=== PATIENT | male | born 1940 | race Caucasian/White ===

== ENCOUNTER → 2018-09-29 13:31 | Outpatient (CLI) | payer MEDICARE, OTHER, SELFPAY ==
--- NOTE | 2018-09-29 | DI.MRI.S_ITS ---
PROCEDURE: MR KNEE RT WO CON INDICATIONS: MEDIAL MENISCAL TEAR TECHNIQUE: Noncontrast sagittal PD fast spin echo and T2 fast spin echo with fat saturation, sagittal 3-D FLASH with fat saturation; coronal T1 spin echo and PD fast spin echo with fat saturation, and axial PD fast spin echo with fat saturation through the knee. COMPARISON: [facility] Aric, DANIELITO, XR KNEE ARTHRITIC SERIES BI, 07/24/2018, 8:16. [facility], MR, KNEE WITHOUT CONTRAST, 12/28/2016, 10:00[facility]/18/2017, 10:45. FINDINGS: Image quality: Excellent. Menisci: Lateral meniscus appears intact. Undersurface tear involving the posterior horn and body of the medial meniscus, with partial extrusion Cruciate ligaments: The anterior and posterior cruciate ligaments appear intact. Medial structures: The medial collateral ligament appears intact. Mild adjacent soft tissue edema is likely reactive to meniscal pathology. The posterior oblique ligament, semimembranosus tendon insertions, oblique popliteal ligament, and meniscocapsular junction appear intact. Visualized portions of the pes anserinus tendons appear normal. No abnormal bursal fluid. Lateral structures: The lateral collateral ligament, long and short heads of the biceps femoris tendon appear intact. The popliteus tendon appears normal; the popliteofibular ligament appears intact. The posterosuperior and anteroinferior popliteomeniscal fascicles appear intact. The arcuate and fabellofibular ligaments appear intact, on either side of the lateral inferior geniculate artery. Iliotibial band appears normal. Anterior structures: Mild distal quadriceps and proximal patellar tendinopathy. There is prominent prepatellar and superficial infrapatellar subcutaneous edema. Patellar alignment is normal. No femoral trochlear dysplasia or ventral trochlear prominence. No edema in the infrapatellar fat pad. Bones and cartilage: No bone marrow contusions or fractures. Within the medial compartment, mild partial-thickness loss of the femoral and tibial articular cartilage. There is also partial-thickness loss of the posterior femoral articular cartilage on image 15 series 6. Within the lateral compartment articular cartilage appears grossly preserved. Within the patellofemoral compartment, partial-thickness loss of cartilage overlying the medial patellar facet with underlying subchondral cystic change and marrow edema. Partial-thickness loss of the central femoral trochlear cartilage, in addition to subchondral osteophyte formation image 83 series 9. Joint space: Small joint effusion. Trace fluid between the semimembranosus and medial gastrocnemius tendons without definite for abscess. No intra-articular loose bodies identified. IMPRESSION: Medial meniscal undersurface tear involving the body and posterior horn with partial extrusion. Tricompartmental joint degeneration as above. Small joint effusion. Mild distal quadriceps and proximal patellar tendinopathy. Anterior subcutaneous soft tissue edema and fluid as above. Dictated by: Behzad Kitchen M.D. on 10/01/2018 at 9:18 Approved by: Behzad Kitchen M.D. on 10/01/2018 at 9:26
== END ==
PROVIDERS: PCP Family Medicine; Visit Provider Orthopaedic Surgery
DX: S83.241A Other tear of medial meniscus, current injury, right knee, initial encounter (principal); M17.11 Unilateral primary osteoarthritis, right knee; M25.461 Effusion, right knee; R60.0 Localized edema
CPT/HCPCS: 73721

== ENCOUNTER → 2019-06-29 10:23 | Outpatient (CLI) | payer MEDICARE, OTHER, SELFPAY ==
--- NOTE | 2019-06-29 | DI.MRI.S_ITS ---
PROCEDURE: MR ANKLE RT WO CON INDICATIONS: pain in right ankle and joints TECHNIQUE: Noncontrast sagittal T1 spin echo and T2 fast spin echo with fat saturation, axial proton density fast spin echo and T2 fast spin echo with fat saturation, coronal T1 spin echo and T2 fast spin echo with fat saturation through the ankle/hindfoot. COMPARISON: None. FINDINGS: Image quality: Diagnostic. Bones and joints: No acute fracture, dislocation, or suspicious osseous lesion is identified involving the osseous structures of the midfoot or hindfoot. Ankle mortise is well-maintained. There are no osteochondral defects involving the tibial plafond toward the talar dome. Heterogeneity of the hyaline articular cartilage is evident within the middle and posterior subtalar joints without a definite full-thickness cartilaginous defect appreciated. There may be early degenerative changes of the 2nd tarsometatarsal joint. No significant joint effusions are present. There is a small plantar calcaneal spur identified with reactive marrow edema of the adjacent calcaneal tuberosity. Medial structures: The deltoid ligament and the spring ligament are intact. There is slight increased signal at the navicular attachment of the superomedial band of the spring ligament. The plantar components of the spring ligament are intact. The tibialis posterior tendon is intact. A small amount of fluid is contained within its corresponding tendon sheath. The flexor hallucis longus and flexor digitorum longus tendons are intact. Mild edema about the medial aspect of the ankle is present. The posterior tibial nerve to the region of the tarsal tunnel appears to be within normal limits. Lateral structures: The anterior and posterior distal tibiofibular ligaments are intact. The anterior and posterior talofibular ligaments are moderately irregular, probably related to previous injury. However, no definitive complete tear is appreciated. The calcaneofibular ligament is thickened and heterogeneous. Mild edema about the lateral malleolus is noted. There is thickening and increased signal involving the peroneus longus tendon along the posterior aspect of the lateral malleolus with a small amount of fluid contained within its corresponding tendon sheath. The peroneus brevis tendon also demonstrates slight increase signal along the posterior aspect of the lateral malleolus. Fluid is also contained within its corresponding tendon sheath. Mild increased signal is identified within the sinus tarsi. Anterior structures: The tibialis anterior, extensor hallucis longus, and extensor digitorum longus tendons appear intact. The dorsal talonavicular ligament appears intact. Posterior and plantar structures: Achilles tendon is intact. Mild thickening of the medial band of the plantar fascia is present, measuring up to 5 mm. There is minimal adjacent soft tissue edema. IMPRESSION: 1. Low-grade spring ligament sprain versus scarring. 2. Mild tibialis posterior tenosynovitis without significant tendinopathy. 3. Scarring of the lateral ankle ligaments. No definite complete tears. 4. Mild peroneus brevis and longus tendinopathy with corresponding mild tenosynovitis. 5. Small plantar calcaneal spur with reactive marrow edema and mild thickening of the plantar fascia. Clinical correlation for possible plantar fasciitis is recommended. 6. Increased signal within the sinus tarsi is nonspecific and may be within normal limits. However, clinical correlation to exclude sinus tarsi syndrome is recommended. 7. Subcutaneous edema about the ankle. Dictated by: Hang Perez M.D. on 06/29/2019 at 11:01 Approved by: Hang Perez M.D. on 06/29/2019 at 11:07
== END ==
PROVIDERS: PCP Family Medicine; Visit Provider Orthopaedic Surgery Foot and Ankle Surgery
DX: M25.571 Pain in right ankle and joints of right foot (principal); M65.871 Other synovitis and tenosynovitis, right ankle and foot; M77.31 Calcaneal spur, right foot; M25.471 Effusion, right ankle
CPT/HCPCS: 73721

== ENCOUNTER → 2024-05-04 09:27 | Outpatient (CLI) | payer MEDICARE, OTHER, SELFPAY ==
--- NOTE | 2024-05-04 09:30 | DI.CT.S_ITS ---
PROCEDURE: CT LUNG LOW DOSE SCREENING INDICATIONS: nicotine dependence;Disorder of kidney and ureter TECHNIQUE: Noncontrast 2.0-2.5 mm thick sections acquired from the pulmonary apices to the posterior costophrenic angles. 7 mm thick axial MIP, and 5 mm coronal and sagittal reformats were then acquired. For radiation dose reduction, the following was used: automated exposure control, adjustment of mA and/or kV according to patient size. COMPARISON: None. FINDINGS: Image quality: Diagnostic. Lower Neck: No enlarged lymph nodes. Thyroid: No thyroid nodules which require sonographic follow up, per consensus guidelines. Axillae: No enlarged lymph nodes. Chest Wall: Unremarkable. Bones: No aggressive appearing bony lesion is seen. Lungs and Pleura: There is moderate centrilobular emphysema. Scattered scarring/atelectasis in periphery of bilateral lower lung thomas are seen. Soft tissue prominence involving right minor fissure is seen measures up to 4.3 x 1.5 x 1.2 cm in size series 3, image 122 and series 4, image 27. No other suspicious pulmonary nodule or mass is seen. No pleural effusion or pneumothorax. Heart: Heart size is mildly enlarged. No pericardial effusion. Thoracic Vessels: The aorta is normal in size. Prominent size of main pulmonary artery is seen which can be seen associated with pulmonary vascular hypertension.. Three-vessel coronary artery atherosclerotic calcifications are seen. Mediastinum and Estela: No enlarged lymph nodes. Esophagus: No wall thickening. No hiatal hernia. Upper Abdomen: Subtle hypodensity in inferior right hepatic lobe is seen measures 9 mm in size series 2, image 57. No gross abnormality is seen in visualized portion spleen, pancreas, and gallbladder. Suggestion of hypodense left adrenal nodule measures 2.51.4 cm in size and -4.4 Hounsfield unit in density. Series 2, image 58. IMPRESSION: 1. Nodular thickening along medial aspect of right minor fissure and measures up to 4.3 x 1.5 x 1.2 cm in size. No other pulmonary nodule is seen. [id number] centrilobular emphysema . Bibasilar scattered atelectasis. Lung-RADS 4B: Suspicious; recommend chest CT with or without contrast, PET-CT and/or biopsy. PET-CT may be used if there is a solid component of 8 mm or more. Clinically Significant Non-pulmonary Findings: Three-vessel coronary artery atherosclerotic calcifications. Possible inferior right hepatic lobe cyst. Suggestion of left adrenal adenoma. Dictated by: Franco Mercado M.D. on 05/05/2024 at 0:15 Approved by: Franco Mercado M.D. on 05/05/2024 at 0:33
--- NOTE | 2024-05-04 09:31 | DI.CT.S_ITS ---
PROCEDURE: CT KIDNEY URETER BLADDER (KUB) INDICATIONS: nicotine dependence;Disorder of kidney and ureter TECHNIQUE: Axial sections were acquired from the lung bases to the pubic symphysis. Coronal and sagittal reformats were performed. For radiation dose reduction, the following was used: automated exposure control, adjustment of mA and/or kV according to patient size. COMPARISON: [facility], CT, CT LUNG LOW DOSE SCREENING, 05/04/2024, 9:32. FINDINGS: Image quality: Diagnostic. Lower Chest: Please refer to CT of chest findings. URINARY: Right Kidney: No stones or hydronephrosis. Exophytic simple appearing cyst in posterior cortex of midpole right kidney is seen and measures 5.1 x 4 cm in size series 2, image 41. Right Ureter: No hydroureter. Left Kidney: No stones or hydronephrosis. No gross solid appearing renal lesion. Left Ureter: No hydroureter. Bladder: Normal wall thickness. No stones. ABDOMEN: Liver: No contour-deforming solid mass. Multiple well-circumscribed hypodense areas scattered in liver parenchyma measures up to 2.5 x 2.1 cm in size in left hepatic lobe and 3.7 Hounsfield unit in density series 2, image 24 likely represent hepatic cysts. Gallbladder: No radiopaque gallstones or wall thickening. Biliary ducts: No biliary dilation. Pancreas: No ductal dilation. Spleen: Size is within normal limits. Adrenal Glands: Hypodense nodule involving left adrenal gland measures 3 x 1.9 cm in size and 1.2 Hounsfield unit in density is seen series 2, image 32 likely represent lipid rich adrenal adenoma. No right adrenal nodule is seen. Stomach and Bowel: There is a small hiatal hernia. No bowel obstruction or abnormal bowel wall thickening. Sigmoid diverticulosis is seen without CT evidence of acute diverticulitis. No abscess collection. Peritoneum: No abnormal intraperitoneal fluid. No free air. Ventral Wall: No hernia. Abdominal Nodes: No enlarged retroperitoneal or mesenteric lymph nodes. Vessels: Fusiform infrarenal abdominal aortic aneurysm is seen measures up to 6 x 5.5 cm in largest transverse and AP diameter series 2, image 50. Bilateral common iliac artery aneurysmal dilatation is also seen measures up to 1.7 cm in diameter on the right side and 1.5 cm in diameter on the left side. Moderate atherosclerotic disease throughout abdominal aorta and bilateral iliac arteries. IVC is normal in size. PELVIS: Pelvic Organs: There is prior prostatectomy.. Pelvic Nodes: Unremarkable. Miscellaneous: Moderate size left inguinal hernia is seen containing fat only. Bones: No aggressive appearing osseous lesions. Degenerative disc disease throughout thoracic and lumbar spine is seen. IMPRESSION: 1. No obstructing stones or hydronephrosis. No hydroureter. Simple appearing right renal cyst as above. No solid renal lesion. 2. Normal appearing urinary bladder. Prior prostatectomy. 3. Well-circumscribed hypodensities in liver parenchyma likely represent hepatic cysts. 4. 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 5. Fusiform infrarenal abdominal aortic aneurysm measures up to 6 x 5.5 cm in largest transverse and AP diameter. 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 Moderate atherosclerotic disease in abdominal aorta and bilateral iliac arteries. 6. Sigmoid diverticulosis without CT evidence of acute diverticulitis. No bowel obstruction or abnormal bowel wall thickening. No free fluid or free air. Small hiatal hernia. 7. Left inguinal hernia containing fat only. Dictated by: Franco Mercado M.D. on 05/05/2024 at 0:34 Approved by: Franco Mercado M.D. on 05/05/2024 at 0:50
== END ==
LOC: CT 09:29
PROVIDERS: PCP Family Medicine; Referring Provider Family Medicine; Visit Provider Family Medicine
DX: D35.02 Benign neoplasm of left adrenal gland (principal); N28.9 Disorder of kidney and ureter, unspecified; Z12.2 Encounter for screening for malignant neoplasm of respiratory organs; F17.211 Nicotine dependence, cigarettes, in remission; I71.43 Infrarenal abdominal aortic aneurysm, without rupture; I72.3 Aneurysm of iliac artery; I70.0 Atherosclerosis of aorta; I51.7 Cardiomegaly; I25.10 Atherosclerotic heart disease of native coronary artery without angina pectoris; N28.1 Cyst of kidney, acquired; K44.9 Diaphragmatic hernia without obstruction or gangrene; K57.30 Diverticulosis of large intestine without perforation or abscess without bleeding; K40.90 Unilateral inguinal hernia, without obstruction or gangrene, not specified as recurrent; M51.36 Other intervertebral disc degeneration, lumbar region; M51.34 Other intervertebral disc degeneration, thoracic region
CPT/HCPCS: 71271; 74176

== ENCOUNTER → 2024-06-22 10:34 | Outpatient (CLI) | payer MEDICARE, OTHER, SELFPAY ==
--- NOTE | 2024-06-22 10:35 | DI.CT.S_ITS ---
PROCEDURE: CT CHEST WO CON INDICATIONS: HX OF NICOTINE DEP.,DISORDER OF KIDNEY-URETER TECHNIQUE: Noncontrast 5 mm thick sections acquired from the pulmonary apices to the posterior costophrenic angles. 1 mm lung window, 5 mm thick coronal and sagittal and 7 mm axial MIP reformats were then acquired. For radiation dose reduction, the following was used: automated exposure control, adjustment of mA and/or kV according to patient size. COMPARISON: [facility], CT, CT CHEST WO CON, 05/04/2024, 9:32. FINDINGS: Image quality: Diagnostic. Lower Neck: No enlarged lymph nodes. Thyroid: No thyroid nodules which require sonographic follow up, per consensus guidelines. Axillae: No enlarged lymph nodes. Chest Wall: Unremarkable. Bones: Unremarkable. Lungs and Pleura: No pneumothorax or pleural effusions. Mild centrilobular emphysema. Redemonstration of nodular thickening along the right minor fissure measuring up to 1.0 centimeters in caliber 1 measured on sagittal series 6, image 57, previously 1.1 centimeter when measured in similar fashion on CT 05/04/2024. Stable scattered pulmonary micro nodules. No new or enlarging pulmonary nodule. Heart: Heart size is normal. No pericardial effusion. Moderate coronary artery calcifications. Thoracic Vessels: Ectatic main pulmonary artery measuring up to 3.6 centimeter in caliber. The aorta is normal in size. Mediastinum and Estela: No enlarged lymph nodes. Esophagus: No wall thickening. No hiatal hernia. Upper Abdomen: 1.7 centimeter low attenuating left adrenal nodule (Hounsfield units 16). Subcentimeter inferior right hepatic lobe hypodensity (2/61) is too small to characterize on CT, possible cyst versus hemangioma. Visualized upper abdomen solid organs and bowel loops appear normal. IMPRESSION: 1. Compared to prior CT on 05/04/2024, stable to slightly decreased size of nodular thickening along the right minor fissure measuring up to 1.0 centimeters in thickness. No other new or enlarging pulmonary nodules. Recommend follow-up CT chest in 3 months to demonstrate stability. 2. 1.7 cm low attenuating left adrenal nodule. Finding may represent an adenoma. Recommend further evaluation with CT or MR adrenal protocol. 3. Ectatic main pulmonary artery measuring up to 3.6 cm, which can be seen in the setting of pulmonary hypertension. Approved by: Brenda Ellison M.D.,Ph.D. on 06/23/2024 at 21:33
== END ==
PROVIDERS: PCP Family Medicine; Referring Provider Family Medicine; Visit Provider Family Medicine
DX: N28.9 Disorder of kidney and ureter, unspecified (principal); Z87.891 Personal history of nicotine dependence; R91.1 Solitary pulmonary nodule
CPT/HCPCS: 71250

== ENCOUNTER → 2024-07-22 08:40 | Outpatient (CLI) | payer MEDICARE, OTHER, SELFPAY | PROVIDERS: PCP Family Medicine; Referring Provider Internal Medicine Cardiovascular Disease; Visit Provider Internal Medicine Cardiovascular Disease | DX: R06.02 Shortness of breath (principal); Z87.891 Personal history of nicotine dependence; R94.2 Abnormal results of pulmonary function studies | CPT/HCPCS: 94060; 94726; 94729 ==

== ENCOUNTER → 2024-10-05 09:26 | Outpatient (CLI) | payer MEDICARE, OTHER, SELFPAY ==
--- NOTE | 2024-10-05 09:27 | DI.CT.S_ITS ---
PROCEDURE: CT CHEST WO CON INDICATIONS: follow up on lung nodule TECHNIQUE: Noncontrast 2.0-2.5 mm thick sections acquired from the pulmonary apices to the posterior costophrenic angles. 7 mm thick axial MIP and 5 mm coronal and sagittal reformats were then acquired. For radiation dose reduction, the following was used: automated exposure control, adjustment of mA and/or kV according to patient size. COMPARISON: [facility], CT, CT CHEST WO CON, 06/22/2024, 10:38. [facility], CT, CT CHEST WO CON, 05/04/2024, 9:32. FINDINGS: Image quality: Diagnostic. Lower Neck: No enlarged lymph nodes. Thyroid: No thyroid nodules which require sonographic follow up, per consensus guidelines. Axillae: No enlarged lymph nodes. Chest Wall: Unremarkable. Bones: Visualized osseous structures appear intact without acute fracture or focal destructive lesion. No acute compression fractures of the imaged spine. Lungs and Pleura: No pneumothorax or pleural effusions. No acute consolidation. No new suspicious or enlarging pulmonary nodules. Redemonstration of previously described soft tissue thickening of the right minor fissure measuring approximately 1.5 x 4.3 cm in transverse dimension (image 130/series 3) and approximately 1.0 cm in craniocaudal dimension (image 38/series 4). Findings are not significantly changed compared to May 04, 2024. There is upper lobe predominant pulmonary emphysema. Heart: Heart size is normal. No pericardial effusion. Multivessel atherosclerotic calcifications of the coronary arteries. Thoracic Vessels: The aorta is normal size. Persistent mild enlargement of main pulmonary artery measuring 3.7 cm in diameter. Mediastinum and Estela: No enlarged lymph nodes. Esophagus: No wall thickening. No hiatal hernia. Upper Abdomen: Redemonstration of hepatic hypodensities likely representing cysts or hemangiomas. Low-attenuation left adrenal nodule measuring 3 Hounsfield units. Findings are compatible with an adrenal adenoma. Other visualized upper abdomen solid organs and bowel loops appear unremarkable. IMPRESSION: No significant change in appearance of soft tissue thickening of the right minor fissure measuring approximately 4.3 x 1.5 x 1.0 cm. Stable appearance of upper lobe predominant pulmonary emphysematous changes. Stable enlargement of the main pulmonary artery which may be seen in the setting of chronic pulmonary arterial hypertension. Other chronic/nonacute findings as above. Recommend follow-up chest CT in 6 months versus PET-CT and/or biopsy. Fleischner Society criteria for SOLID lung nodule followup. Nodule size (mm)Low-risk patientHigh-risk patient<6 (single or multiple)No routine followup.Optional CT at 12 months. 6-8 (single or multiple)CT at 6-12 months, then optional CT at 18-24 mo.CT at 6-12 months, then CT at 18-24 months. >8 (single)CT at 3 months, PET-CT, or biopsy. Same as for low-risk pts. >8 (multiple)CT at 3-6 months, then optional CT at 18-24 mo.CT at 3-6 months, then CT at 18-24 months. Fleischner Society criteria for SUB-SOLID lung nodule followup. Solitary pure ground-glass nodules<6 mm (ground glass or part solid)No followup needed. 6 mm or larger (ground glass)CT at 6-12 months to confirm persistence, then CT every 2 years until 5 years.6 mm or larger (part solid)CT at 3-6 months to confirm persistence, then annual CT until 5 years if unchanged and solid component remains <6 mm. Multiple sub-solid nodules<6 mmCT at 3-6 months, then CT consider at 2 & 4 years for high risk patients. [address] at 3-6 months. Subsequent management based on most suspicious lesions. Recommendations do not apply to lung cancer screening, patients with immunosuppression, or patients with known primary cancer. Dictated by: Ron Galvez M.D. on 10/05/2024 at 22:03 Approved by: Ron Galvez M.D. on 10/05/2024 at 22:19
== END ==
PROVIDERS: PCP Family Medicine; Referring Provider Student in an Organized Health Care Education/Training Program; Visit Provider Student in an Organized Health Care Education/Training Program
DX: R91.1 Solitary pulmonary nodule (principal); J43.9 Emphysema, unspecified; I25.10 Atherosclerotic heart disease of native coronary artery without angina pectoris; E27.9 Disorder of adrenal gland, unspecified
CPT/HCPCS: 71250

== ENCOUNTER → 2024-11-09 09:30 | Outpatient (CLI) | payer MEDICARE, OTHER, SELFPAY ==
--- NOTE | 2024-11-09 09:32 | DI.CT.S_ITS ---
PROCEDURE: CT CHEST WO CON INDICATIONS: right fissure mass follow up TECHNIQUE: Noncontrast 5 mm thick sections acquired from the pulmonary apices to the posterior costophrenic angles. 1 mm lung window, 5 mm thick coronal and sagittal and 7 mm axial MIP reformats were then acquired. For radiation dose reduction, the following was used: automated exposure control, adjustment of mA and/or kV according to patient size. COMPARISON: [facility], CT, CT CHEST WO CON, 10/05/2024, 9:27. [facility], CT, CT CHEST WO CON, 05/04/2024, 9:32. FINDINGS: Image quality: Diagnostic Lungs and pleura: Scattered scarring and atelectasis. No dense airspace disease or pleural effusions. Scattered small pulmonary nodules for example in the right are stable. Similar degree of presumed segmental atelectasis along the right minor fissure measuring up to 1.7 cm in thickness (3/139). On coronal images, this area measures a length of 4.1 cm, as before. There appears to be narrowing and possible obstruction of the upstream airway. Mediastinum, heart, and esophagus: Vascular calcifications. Coronary calcifications. Normal heart size. No pathologic lymph nodes by size criteria. Esophagus is unremarkable otherwise. Distended main pulmonary artery at 3.6 cm, likely chronically high pulmonary pressures. Chest wall and thyroid: Unremarkable. Upper abdomen: Suspect posterior left lobe liver cyst. Other subcentimeter lesions are probably also cysts, but too small to characterize. 2.8 cm left adrenal adenoma, correlate with laboratory testing to determine functional status. Bones: Degenerative osseous changes. Bridging osteophytes, with discontinuous segment at T9-T10 as before. IMPRESSION: Similar segmental atelectasis seen along the right minor fissure. There appears to be obstruction of the upstream airway, an endobronchial lesion remains possible. Given background emphysema and presumed patient risk factors, close follow-up chest CT, PET-CT, or bronchoscopic evaluation are suggested. Other stable incidental findings above. Dictated by: Jesus Tran M.D. on 11/09/2024 at 10:25 Approved by: Jesus Tran M.D. on 11/09/2024 at 10:31
== END ==
PROVIDERS: PCP Student in an Organized Health Care Education/Training Program; Referring Provider Family Medicine; Visit Provider Family Medicine
DX: I71.9 Aortic aneurysm of unspecified site, without rupture (principal); J98.11 Atelectasis; J43.9 Emphysema, unspecified; R91.8 Other nonspecific abnormal finding of lung field; I25.10 Atherosclerotic heart disease of native coronary artery without angina pectoris; D35.02 Benign neoplasm of left adrenal gland
CPT/HCPCS: 71250

== ENCOUNTER → 2025-01-31 09:06 | Outpatient (CLI) | payer MEDICARE, OTHER, SELFPAY ==
--- NOTE | 2025-01-31 09:12 | DI.RAD.S_ITS ---
PROCEDURE: XR LUMBAR SPINE 2-3V INDICATIONS: LS SERIES, severe back pain TECHNIQUE: 3 views of the lumbar spine were acquired. COMPARISON: [facility], CT, CT KIDNEY URETER BLADDER (KUB), 05/04/2024, 9:40. FINDINGS: Diffuse osseous demineralization. Five non rib-bearing lumbar vertebrae. Age-indeterminate, but new T12 and L1 superior endplate compression fractures with up to 20% height loss. The other vertebral body heights are preserved. The intervertebral disc heights are preserved. Mildly exaggerated lumbar lordosis. Multilevel hypertrophy of the spinous processes with facet arthropathy. Peripherally calcified, fusiform abdominal aortic aneurysm measuring up to 7.5 cm (5.8 cm on 05/04/2024) in the maximal AP dimension. Surgical clips at the level of the pubic symphysis. IMPRESSION: 1. Age-indeterminate L1 and L2 compression fractures without significant retropulsion. 2. Interval growth of abdominal aortic aneurysm. Vascular surgery consultation recommended for further evaluation. Dictated by: Oz Maya M.D. on 01/31/2025 at 13:33 Approved by: Oz Maya M.D. on 01/31/2025 at 13:38
--- NOTE | 2025-01-31 09:12 | DI.RAD.S_ITS ---
PROCEDURE: XR SACRUM COCCYX MIN 2V INDICATIONS: LS SERIES,severe back pain TECHNIQUE: 3 views of the sacrum and coccyx acquired. COMPARISON: [facility], CT, CT KIDNEY URETER BLADDER (KUB), 05/04/2024, 9:40. [facility], CR, XR LUMBAR SPINE 2-3V, 01/31/2025, 8:23. FINDINGS: Bones: No fractures or dislocations. No suspicious bony lesions. Soft tissues: Visualized bowel gas pattern is normal. Surgical clips at the level of the pelvis. Partially identified abdominal aortic aneurysm. IMPRESSION: 1. No acute radiographic abnormality. 2. Partially identified abdominal aortic aneurysm. Vascular surgery consultation recommended. An unsuccessful attempt was made to contact the ordering provider by the reading radiologist via phone call. This examination was then marked for urgent communication of findings via the call center. Dictated by: Oz Maya M.D. on 01/31/2025 at 13:38 Approved by: Oz Maya M.D. on 01/31/2025 at 13:45
== END ==
PROVIDERS: Referring Provider Family Medicine; Visit Provider Family Medicine
DX: I71.40 Abdominal aortic aneurysm, without rupture, unspecified (principal); M54.32 Sciatica, left side; M48.56XA Collapsed vertebra, not elsewhere classified, lumbar region, initial encounter for fracture; M47.816 Spondylosis without myelopathy or radiculopathy, lumbar region; R91.1 Solitary pulmonary nodule; M54.9 Dorsalgia, unspecified
CPT/HCPCS: 72100; 72220

== ENCOUNTER 2025-01-31 17:55 | Emergency (ER) | payer MEDICARE, OTHER, SELFPAY ==
[2025-01-31] VITALS (30 sets, daily range): BP systolic 157–223; BP diastolic 74–109; PULSE 45–58; RESP 7–43; TEMP 37.2; O2SAT 89–95; BMI 36.0
--- NOTE | 2025-01-31 17:57 | DI.RAD.S_ITS ---
PROCEDURE: XR CHEST 1V INDICATIONS: chest pain TECHNIQUE: One view of the chest was acquired. COMPARISON: [facility], CT, CT CHEST WO CON, 11/09/2024, 9:34. [facility], CR, CHEST 2 VIEW, 02/20/2017, 11:40. [facility], CR, CHEST 2 VIEW, 01/15/2016, 11:05. FINDINGS AND IMPRESSION: Possible new mild opacity at the left costophrenic angle representing airspace disease or atelectasis. Suspect chronic linear opacity at the right mid lung again seen. Consider continued follow-up based on prior chest CT report Aortic calcifications. Borderline cardiomegaly. Right hemidiaphragm eventration. Degenerative osseous changes. Dictated by: Jesus Tran M.D. on 01/31/2025 at 18:41 Approved by: Jesus Tran M.D. on 01/31/2025 at 18:44
--- NOTE | 2025-01-31 17:57 | EKG_ITS ---
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
--- NOTE | 2025-01-31 18:13 | PC.NURSE ---
Blood pressures taken on different arms: 201/109 on Right upper extremity;206/95 on Left Upper extremity
[2025-01-31 18:24] LABS: Add Manual Diff / Slide Review NO; Basophils Absolute Auto 100 /uL (0-100); Basophils Percent Auto 1.2 % (0-2); Eosinophils Absolute Auto 200 /uL (0-450); Eosinophils Percent Auto 2.6 % (2-4); Hematocrit 44.7 % (41-53); Hemoglobin 14.7 g/dL (13.5-17.5); Lymphocytes Absolute Auto 1300 /uL (1100-4500); Lymphocytes Percent Auto 18.4 % (25-40); Mean Corpuscular HGB Conc 32.8 % (30-36); Mean Corpuscular Hemoglobin 31.4 PG (26-34); Mean Corpuscular Volume 95.5 fL (80-100); Monocytes Absolute Auto 900 /uL (0-900); Monocytes Percent Auto 12.7 % (3-14); Neutrophils Absolute Auto 4700 /uL (1500-7000); Neutrophils Percent Auto 65.1 % (50-75); Platelet Count 208 X10^3/uL (150-400); Red Blood Cell Count 4.68 X10^6/uL (4.5-5.9); Red Cell Distribution Width 14.5 % (11.6-14.8); White Blood Cell Count 7.2 X10^3/uL (4.5-11.0)
--- NOTE | 2025-01-31 18:25 | ED_ITS ---
HPI - Chest Pain General Chief Complaint: Chest Pain Stated Complaint: sent by PCP, aortic aneurism Time Seen by Provider: 01/31/25 18:19 Source: patient and family Mode of arrival: Ambulatory Limitations: no limitations History of Present Illness HPI narrative: 84-year-old gentleman with a history of hypertension, hyperlipidemia, COPD, congestive heart failure, hypothyroidism presents with significantly enlarged aortic aneurysm on x-ray of the lumbar spine done earlier today for an acute lumbar sprain. 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 Saw his primary care physician who ordered the x-ray. That back pain has since resolved. Patient has a known abdominal aneurysm on CT scan in April of 2024 it measured 6 x 5.5 cm, he was seen in consultation for repair by vascular surgery at [facility] in [place]. At that time after informed discussion with the vascular surgeon he decided having that repaired did not make sense with his other high-risk comorbidities. X-ray today shows an L1 and L2 compression fracture without retropulsion and noted interval growth of his abdominal aneurysm now measuring 7.5 cm in maximal AP dimension. Patient currently is asymptomatic and pain- free. He notes that he did take his 10 mg of lisinopril this morning, typically blood pressures are in the 135/60, in the ER currently blood pressure is 206/95. He is chronically bradycardic around 50 which has not changed. Related Data Home Medications Medication Instructions Recorded Confirmed ASPIRIN (Aspirin Low Dose) 81 mg PO QDAY ##0 05/05/10 12/03/24 CHOLECALCIFEROL (VITAMIN D3) 1,000 iu PO QDAY ##0 05/05/10 12/03/24 (Vitamin D3) LISINOPRIL (Zestril / Prinivil) 10 mg PO AM ##0 05/05/10 12/03/24 Simvastatin (Zocor) 40 mg PO AM ##0 09/26/24 12/03/24 budesonide 160 mcg-glycopyr 9 2 inh inhalation BID 09/26/24 12/03/24 mcg-formot 4.8 mcg/actuation HFA inhaler (Breztri Aerosphere) levothyroxine 100 mcg capsule 100 mcg PO DAILY 09/26/24 12/03/24 furosemide 20 mg tablet 20 mg PO DAILY 12/03/24 12/03/24 Allergies Allergy/AdvReac Type Severity Reaction Status Date / Time No Known Drug Allergies Allergy Unverified 12/03/24 11:33 Patient History Medical History (Updated 01/31/25 @ 21:07 by Eli Souza MD) Hypertension Abdominal aneurysm Hypothyroidism (acquired) Bradycardia COPD (chronic obstructive pulmonary disease) Pulmonary nodule Social History Smoking Status: Never smoker Smoking Status: Never smoker Exam Initial Vital Signs Initial Vital Signs: Vital Signs Pulse Rate 58 L 01/31/25 18:01 Respiratory Rate 18 01/31/25 18:01 Pulse Oximetry 91 01/31/25 18:01 General: Older but otherwise Healthy appearing, in no acute distress. Able to give a complete and coherent history. Well-nourished well-developed HEENT: Moist mucous membranes, normal sclera with reactive pupils, he has surgical dressings on his left ear and an area of the left upper chest from recent dermatologic surgeries Respiratory: Lungs are clear to auscultation, no wheezing no rales no rhonchi. Full and symmetrical air movement Cardiac: Slow but otherwise Regular rate and rhythm no murmurs no bruits Abdomen: Soft, nontender, no rebound or guarding, no flank pain. He is not having any pain with deep palpation and I do not palpate his known aneurysm Skin: Warm and dry, no rashes Neurologic: Grossly neurologically intact with no obvious asymmetries or abnormalities Extremities: No trauma, well perfused Psych: Cooperative, appropriate insight and affect Course Orders Ordered: Discontinued Medications Aspirin (Aspirin 81 Mg Chew Tab) 324 mg PO NOW ONE Stop: 01/31/25 17:58 Last Admin: 01/31/25 19:01 Dose: Not Given Documented By: FELECIA Diltiazem HCl (Diltiazem 25 Mg/5 Ml Sdv) 10 mg IV NOW ONE Stop: 01/31/25 20:32 Last Admin: 01/31/25 20:50 Dose: 10 mg Documented By: KALPESH Lisinopril (Lisinopril 10 Mg Tablet) 10 mg PO NOW ONE Stop: 01/31/25 21:00 Last Admin: 01/31/25 21:10 Dose: 10 mg Documented By: FELECIA Vital Signs Vital signs: Vital Signs - 8 hr 01/31/25 18:01 01/31/25 18:02 01/31/25 18:02 Temperature Pulse Rate 58 L 57 L Respiratory Rate 18 19 Blood Pressure 206/95 H Pulse Oximetry 91 92 Oxygen Delivery Method 01/31/25 18:04 01/31/25 18:04 01/31/25 18:06 Temperature 98.9 F Pulse Rate 56 L 56 L Respiratory Rate 19 16 Blood Pressure 201/109 H 206/95 H Pulse Oximetry 94 92 Oxygen Delivery Method Room Air 01/31/25 18:12 01/31/25 18:30 01/31/25 18:31 Temperature Pulse Rate 52 L 54 L Respiratory Rate 25 H 43 H Blood Pressure 201/109 H Pulse Oximetry 94 93 Oxygen Delivery Method 01/31/25 18:31 01/31/25 18:40 01/31/25 18:40 Temperature Pulse Rate 51 L Respiratory Rate 20 Blood Pressure 190/86 H 204/93 H Pulse Oximetry 93 Oxygen Delivery Method 01/31/25 18:51 01/31/25 18:51 01/31/25 19:00 Temperature Pulse Rate 50 L 49 L Respiratory Rate 21 19 Blood Pressure 213/93 H Pulse Oximetry 91 92 Oxygen Delivery Method 01/31/25 19:01 01/31/25 19:01 01/31/25 19:11 Temperature Pulse Rate 49 L 48 L Respiratory Rate 24 Blood Pressure 214/92 H Pulse Oximetry 92 92 Oxygen Delivery Method 01/31/25 19:11 01/31/25 19:21 01/31/25 19:21 Temperature Pulse Rate 47 L Respiratory Rate 19 Blood Pressure 201/90 H 196/90 H Pulse Oximetry 91 Oxygen Delivery Method 01/31/25 19:30 01/31/25 19:30 01/31/25 19:41 Temperature Pulse Rate 50 L 48 L Respiratory Rate 21 21 Blood Pressure 204/90 H Pulse Oximetry 93 Oxygen Delivery Method 01/31/25 19:41 01/31/25 19:51 01/31/25 19:51 Temperature Pulse Rate 48 L Respiratory Rate Blood Pressure 211/87 H 206/91 H Pulse Oximetry 93 Oxygen Delivery Method 01/31/25 20:00 01/31/25 20:01 01/31/25 20:01 Temperature Pulse Rate 48 L 49 L Respiratory Rate 23 21 Blood Pressure 223/90 H Pulse Oximetry 93 92 Oxygen Delivery Method 01/31/25 20:11 01/31/25 20:11 01/31/25 20:20 Temperature Pulse Rate 50 L 50 L Respiratory Rate 25 H 17 Blood Pressure 212/94 H Pulse Oximetry 91 90 L Oxygen Delivery Method 01/31/25 20:20 01/31/25 20:30 01/31/25 20:30 Temperature Pulse Rate 54 L Respiratory Rate 7 L Blood Pressure 202/93 H 217/95 H Pulse Oximetry 93 Oxygen Delivery Method 01/31/25 20:40 01/31/25 20:40 01/31/25 20:50 Temperature Pulse Rate 50 L 50 L Respiratory Rate 24 Blood Pressure 203/76 H 203/76 H Pulse Oximetry 92 Oxygen Delivery Method MDM - Chest Pain Lab Data 01/31/25 18:14 01/31/25 18:14 Labs: Lab Results 01/31/25 Range/Units 18:14 WBC 7.2 (4.5-11.0) X10^3/uL RBC 4.68 (4.5-5.9) X10^6/uL Hgb 14.7 (13.5-17.5) g/dL Hct 44.7 (41-53) % MCV 95.5 (80-100) fL MCH 31.4 (26-34) PG MCHC 32.8 (30-36) % RDW 14.5 (11.6-14.8) % Plt Count 208 (150-400) X10^3/uL Neut % (Auto) 65.1 (50-75) % Lymph % (Auto) 18.4 L (25-40) % [place] % (Auto) 12.7 (3-14) % Eos % (Auto) 2.6 (2-4) % Baso % (Auto) 1.2 (0-2) % Neut # (Auto) 4700 (8903-9349) /uL Lymph # (Auto) 1300 (5385-4601) /uL [place] # (Auto) 900 (0-900) /uL Eos # (Auto) 200 (0-450) /uL Baso # (Auto) 100 (0-100) /uL PT 11.4 (9.4-12.5) SECONDS INR 1.0 (0.9-1.3) APTT 31 (25.1-36.5) SECONDS Sodium 141 (137-145) mmol/L Potassium 4.4 (3.4-5.1) mmol/L Chloride 108 H (98-107) mmol/L Carbon Dioxide 27 (22-32) mmol/L BUN 30 H (9-20) mg/dL Creatinine 1.32 H (0.66-1.25) mg/dL Estimated GFR 54 L (>60) mL/min BUN/Creatinine Ratio 22.7 H (6-22) Glucose 107 (80-110) mg/dL Calcium 9.1 (8.4-10.2) mg/dL Magnesium 1.8 (1.6-2.3) mg/dL Total Bilirubin 0.4 (0.2-1.3) mg/dL AST 30 (17-59) IU/L ALT 22 (<50) IU/L Alkaline Phosphatase 77 (38-126) U/L Total Creatine Kinase 51 L (55-170) U/L Troponin I < 0.012 (0.01-0.034) ng/mL NT-Pro-B Natriuret Pep 252 (<450) pg/mL Total Protein 7.1 (6.3-8.2) g/dL Albumin 4.0 (3.5-5.0) g/dL Globulin 3.1 (1.7-4.1) g/dL Albumin/Globulin Ratio 1.3 (1.0-2.8) Lipase 435 H (23-300) U/L MDM Narrative Medical decision making narrative: CC: Enlarging abdominal aneurysm appreciated on incidental radiology study Complicating co-morbidities: Known aneurysm with consultation a year ago in decision to not have it repaired due to high surgical risk Data collected from: patient, Social determinants of health that may influence the patients condition: Discussed code status, he would want to be DNR DNI but, at this point would like to consider proceeding with surgical revision of his aneurysm despite increased risks over risks discussed a year ago Medical records reviewed: CT scan from April of 2024 is reviewed, lumbar x-ray from today is reviewed. Differential considered: Increasing abdominal aortic aneurysm, leaking aneurysm as a cause of his acute back pain, Exam documented above, pertinent findings include: Exam is essentially benign. He has a rotund abdomen with no palpable mass appreciated. He currently is hypertensive but pain free Lab Test results independently reviewed as above. Pertinent findings: CBC is unremarkable with a hemoglobin of 14.7 Chemistries show a creatinine of 1.32 with a GFR of 54. Labs are unavailable. Potassium appropriate 4.4. Liver studies are unremarkable Independently reviewed EKG: Initial EKG shows what I believe is actually sinus rhythm with PACs and PVCs. I do not think this is atrial fibrillation. Repeat EKG an hour later clearly shows sinus bradycardia with a right bundle branch block Imaging studies independently reviewed: IMPRESSION: Limited evaluation due to overlying bowel gas. Fusiform abdominal aortic aneurysm measures up to 6.3 cm in size in mid abdominal aorta as described above. Dictated by: Franco Mercado M.D. on 01/31/2025 at 19:48 CT scan in April of 2024 it measured 6 x 5.5 cm, Consultations: Dr Rodriguez, vascular surgeon. Reviewed the ultrasound findings that suggest there has not been significant change in size. Given the fact that patient is currently pain-free we will recommend outpatient follow up if he does in fact want to proceed with elective surgery for his known aneurysm Treatments: Patient was given 10 mg of IV diltiazem and his usual 10 mg of oral evening lisinopril Discussion: 84-year-old gentleman who had some left lumbar pain after lifting heavy bags from his truck. X-ray suggests indeterminate L1 and L2 fractures. He currently is pain-free. Incidentally noted on the x-ray was his abdominal aneurysm felt to be significantly enlarged from a year ago when measured by CT scan. Ultrasound in the emergency department actually shows that per CT scan was measuring 6 cm and ultrasound is showing 6.3 cm. Patient did see vascular surgery and decided against any type of intervention. When he was told today that it was over 7 cm he did will not intervention. We talked about that. Told him if he is waiting for it to get ?big enough? to treat he is currently at that stage. Waiting longer only increases his risk. He does understand if this ruptures, he will . He is comfortable with that and reiterates his DNR DNI status. Blood pressure was elevated in the emergency department. Patient states he typically is in the 130s at home uses a wrist cuff. His has an upper arm cuff suggested that he try both and see if they correlate. After a single dose of IV diltiazem and his usual oral lisinopril blood pressures are down, he continues to be pain-free and we will be discharged home. I encouraged him to consider follow up with vascular surgery again if he does want to have this aneurysm fixed before ruptures Discharge Plan Departure Patient Disposition: Home Clinical Impression: Abdominal aneurysm Hypertension Qualifiers: Hypertension type: primary hypertension Qualified Code(s): I10 - Essential (primary) hypertension Instructions: DI for Abdominal Aortic Aneurysm Repair Activity Restrictions/Additional Instructions: Thank you for coming in today In April of [address] scan your abdominal aneurysm was measured to be 6 cm greatest diameter. On a lumbar x-ray that was done today for back pain, which she said has now resolved, there was a concern that it was measuring larger than 7 cm, it is not uncommon for x-rays to overestimate the size of abdominal aneurysms. Ultrasound done in the emergency department suggests that that the aneurysm in greatest diameter is 6.3 cm. This is enlarged from April of last year but not nearly as much. You still are at significant risk for rupture. If this aneurysm ruptures you will . If you do want to reconsider having this surgically repaired, you can call the vascular surgeons [facility] and schedule a follow up appointment. There were notes from April had indicated they were waiting to hear from you for any further action Regarding your blood pressure, it was significantly elevated in the emergency department I would recommend that you take your wrist blood pressure cuff as well as your 's upper arm blood pressure cuff and see if you get similar readings at both sites. In the meantime, blood pressure was coming down with a single dose of IV diltiazem in the emergency department as well as your usual dose of 10 mg of evening lisinopril. I would encourage you to keep track of your blood pressures and follow up with your primary care physician. If you find that you are getting worse or develop any new symptoms, please feel free to return to the emergency department for further evaluation. Prescriptions: No Action ASPIRIN (Aspirin Low Dose) 81 mg PO QDAY Qty: 0 CHOLECALCIFEROL (VITAMIN D3) (Vitamin D3) 1,000 iu PO QDAY Qty: 0 LISINOPRIL (Zestril / Prinivil) 10 mg PO AM Qty: 0 Simvastatin (Zocor) 40 mg PO AM Qty: 0 levothyroxine 100 mcg capsule 100 mcg PO DAILY Breztri Aerosphere 160-9-4.8 mcg/actuation HFA aerosol inhaler 2 inh inhalation BID furosemide 20 mg tablet 20 mg PO DAILY Referrals: Miscellaneous,Doctor, MD [Primary Care Provider] - Stand Alone Forms: Patient Portal/API/Survey
[2025-01-31 18:29] LABS: Prothrombin Time 11.4 SECONDS (9.4-12.5)
[2025-01-31 18:32] LABS: PTT Partial Thromboplastin Tim 31 SECONDS (25.1-36.5)
[2025-01-31 18:33] LABS: Alanine Aminotransferase 22 IU/L (<50); Albumin Globulin Ratio 1.3 (1.0-2.8); Alkaline Phosphatase 77 U/L (38-126); Aspartate Aminotransferase 30 IU/L (17-59); BUN Creatinine Ratio 22.7 (6-22); Bilirubin Total 0.4 mg/dL (0.2-1.3); Blood Urea Nitrogen 30 mg/dL (9-20); Calcium 9.1 mg/dL (8.4-10.2); Carbon Dioxide 27 mmol/L (22-32); Chloride 108 mmol/L (98-107); Creatine Kinase 51 U/L (55-170); Estimated Glomerular Filt Rate 54 mL/min (>60); Globulin 3.1 g/dL (1.7-4.1); Glucose 107 mg/dL (80-110); HEMOLYSIS < 15 (0-50); Lipase 435 U/L (23-300); Magnesium 1.8 mg/dL (1.6-2.3); Potassium 4.4 mmol/L (3.4-5.1); Sodium 141 mmol/L (137-145); Total Protein 7.1 g/dL (6.3-8.2)
[2025-01-31 18:45] LABS: NT-proBNP (BNP-Adult 18+) 252 pg/mL (<450); Troponin I < 0.012 ng/mL (0.01-0.034)
--- NOTE | 2025-01-31 18:45 | DI.US.S_ITS ---
PROCEDURE: US ABD AORTA ANEURYSM SCREEN INDICATIONS: AAA TECHNIQUE: Real time scanning was performed of the aorta and iliac arteries, with image documentation. COMPARISON: None. FINDINGS: Aorta: Proximal aortic diameter measures 4.6 cm. Mid-aorta measures 6.3 cm. Distal aortic diameter is not well seen. Questionable thrombus formation within aneurysmal sac is seen. Iliac arteries: Not well seen. IMPRESSION: Limited evaluation due to overlying bowel gas. Fusiform abdominal aortic aneurysm measures up to 6.3 cm in size in mid abdominal aorta as described above. Dictated by: Franco Mercado M.D. on 01/31/2025 at 19:48 Approved by: Franco Mercado M.D. on 01/31/2025 at 19:50
--- NOTE | 2025-01-31 18:58 | EKG_ITS ---
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
--- NOTE | 2025-01-31 19:03 | PC.NURSE ---
pt denies chest pain/discomfort at this time
[2025-01-31] MEDS: dilTIAZem 25 MG/5 ML SDV 10 MG IV (20:50)
[2025-01-31] MEDS: lisinopriL 10 MG TABLET PO (21:10)
== END 2025-01-31 21:38 | disposition home or self-care (01) ==
PROVIDERS: Emergency Medicine; Emergency Provider Emergency Medicine
DX: I71.40 Abdominal aortic aneurysm, without rupture, unspecified (principal); I10 Essential (primary) hypertension; R07.9 Chest pain, unspecified; R00.1 Bradycardia, unspecified; I45.10 Unspecified right bundle-branch block; M54.50 Low back pain, unspecified; X50.0XXA Overexertion from strenuous movement or load, initial encounter; M54.32 Sciatica, left side; M48.56XA Collapsed vertebra, not elsewhere classified, lumbar region, initial encounter for fracture; M47.816 Spondylosis without myelopathy or radiculopathy, lumbar region; R91.1 Solitary pulmonary nodule; M54.9 Dorsalgia, unspecified
CPT/HCPCS: 36415; 71045; 72100; 72220; 76706; 80053; 82550; 83690; 83735; 83880; 84484; 85025; 85610; 85730; 93005; 96374; 99284

== ENCOUNTER → 2025-02-17 11:35 | Outpatient (CLI) | payer MEDICARE, OTHER, SELFPAY ==
--- NOTE | 2025-02-17 11:38 | DI.RAD.S_ITS ---
PROCEDURE: XR SHOULDER RT MIN 2V INDICATIONS: Pain in right shoulder TECHNIQUE: 3 views of the shoulder were acquired. COMPARISON: None. FINDINGS: Bones: No fractures or dislocations. No suspicious bony lesions. Visualized ribs appear intact. Acromioclavicular joint space narrowing with osteophytosis. Soft tissues: No suspicious soft tissue calcifications. IMPRESSION: Moderate acromioclavicular osteoarthritis. Dictated by: Barrington Ace M.D. on 02/17/2025 at 15:10 Approved by: Barrington Ace M.D. on 02/17/2025 at 15:10
== END ==
LOC: RAD 11:37
PROVIDERS: PCP Family Medicine; Referring Provider Family Medicine; Visit Provider Family Medicine
DX: M19.011 Primary osteoarthritis, right shoulder (principal); M25.511 Pain in right shoulder
CPT/HCPCS: 73030

== ENCOUNTER → 2025-05-24 12:29 | Outpatient (CLI) | payer MEDICARE, OTHER, SELFPAY ==
--- NOTE | 2025-05-24 12:31 | DI.CT.S_ITS ---
PROCEDURE: CT CHEST WO CON INDICATIONS: f/u r fissure nodularity and RUL airway obstruction TECHNIQUE: Noncontrast 2.0-2.5 mm thick sections acquired from the pulmonary apices to the posterior costophrenic angles. 7 mm thick axial MIP and 5 mm coronal and sagittal reformats were then acquired. For radiation dose reduction, the following was used: automated exposure control, adjustment of mA and/or kV according to patient size. COMPARISON: [facility], CT, CT CHEST WO CON, 11/09/2024, 9:34. [facility], CT, CT CHEST WO CON, 10/05/2024, 9:27. FINDINGS: Image quality: Diagnostic. Lower Neck: No enlarged lymph nodes. Thyroid: No thyroid nodules which require sonographic follow up, per consensus guidelines. Axillae: No enlarged lymph nodes. Chest Wall: Unremarkable. Bones: Spondylitic changes throughout thoracic spine unchanged from prior study. No aggressive appearing bony lesions. Lungs and Pleura: No pneumothorax or pleural effusions. Scattered scarring and atelectasis unchanged from prior study. Previously described scattered pulmonary nodules remain stable in size and appearance and measures up to 2 mm in size in right middle lobe series 3 image 133. No suspicious pulmonary nodules are seen. Previously described segmental atelectasis along right minor fissure measures up to 1.7 cm in thickness remains unchanged series 3, image 114. Heart: Heart size is normal. No pericardial effusion. Thoracic Vessels: The aorta is normal in size. Moderate atherosclerotic calcifications are seen. Prominent size of main pulmonary artery unchanged from prior study. Mediastinum and [place]: No enlarged lymph nodes. Esophagus: No wall thickening. Small hiatal hernia. Upper Abdomen: Visualized upper abdomen solid organs and bowel loops appear normal. Left adrenal hypodense nodule remains unchanged in size and density likely represent adenoma. IMPRESSION: 1. Stable segmental atelectasis along right minor fissure unchanged in overall size and appearance compared to prior study. Continued annual clinical and CT follow-up is recommended. 2. Tiny pulmonary nodules stable from prior studies and are suggestive of benign process. No suspicious pulmonary nodules are seen. No pleural effusion or pneumothorax. 3. No mediastinal or hilar lymphadenopathy. Stable prominent size of main pulmonary artery which can be seen associated with pulmonary vascular hypertension. Fleischner Society criteria for SOLID lung nodule followup. Nodule size (mm)Low-risk patientHigh-risk patient<6 (single or multiple)No routine followup.Optional CT at 12 months. 6-8 (single or multiple)CT at 6-12 months, then optional CT at 18-24 mo.CT at 6-12 months, then CT at 18-24 months. >8 (single)CT at 3 months, PET-CT, or biopsy. Same as for low-risk pts. >8 (multiple)CT at 3-6 months, then optional CT at 18-24 mo.CT at 3-6 months, then CT at 18-24 months. Fleischner Society criteria for SUB-SOLID lung nodule followup. Solitary pure ground-glass nodules<6 mm (ground glass or part solid)No followup needed. 6 mm or larger (ground glass)CT at 6-12 months to confirm persistence, then CT every 2 years until 5 years.6 mm or larger (part solid)CT at 3-6 months to confirm persistence, then annual CT until 5 years if unchanged and solid component remains <6 mm. Multiple sub-solid nodules<6 mmCT at 3-6 months, then CT consider at 2 & 4 years for high risk patients. [address] at 3-6 months. Subsequent management based on most suspicious lesions. Recommendations do not apply to lung cancer screening, patients with immunosuppression, or patients with known primary cancer. Dictated by: Franco Mercado M.D. on 05/25/2025 at 23:22 Approved by: Franco Mercado M.D. on 05/25/2025 at 23:27
== END ==
LOC: CT 12:31
PROVIDERS: PCP Family Medicine; Referring Provider Student in an Organized Health Care Education/Training Program; Visit Provider Student in an Organized Health Care Education/Training Program
DX: R91.1 Solitary pulmonary nodule (principal); J98.11 Atelectasis
CPT/HCPCS: 71250